=== PATIENT | male | born 1975 | race Two or more races ===

== ENCOUNTER 2016-10-27 16:03 | Emergency (ER) | payer OTHER ==
[~2016-10-27 16:03] MED LIST: CEPH-264 PO; HYDR-971 PO
[2016-10-27] MEDS ORDERED: IV NORMAL SALINE 1000ML BAG 1,000 ML IV SCH (16:36)
--- NOTE | 2016-10-27 16:44 | EKG ---
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
[2016-10-27] MEDS ORDERED: FAMOTIDINE 20 MG/2 ML VIAL IVP ONE (16:45)
[2016-10-27] MEDS ORDERED: KETOROLAC TROMETHAMINE 30 MG/ML INJ. IV ONE (16:45)
[2016-10-27 16:46] LABS: BASO # 0.1 x10^3/uL (0.0-0.2); BASO % 1 % (0-3); EOS % 5 % (0-3); HEMATOCRIT 50.5 % (39.0-53.0); HEMOGLOBIN 17.4 g/dL (13.0-17.5); LYMPH # 2.1 x10^3/uL (1.0-4.8); LYMPH % 27 % (24-48); MEAN CORPUSCULAR HEMOGLOBIN 31 pg (25-35); MEAN CORPUSCULAR HGB CONC 34 g/dL (31-37); MEAN CORPUSCULAR VOLUME 90 fL (79-100); MONO % 7 % (0-9); NEUT % 62 % (31-73); PLATELET COUNT 228 x10^3/uL (140-400); RED BLOOD COUNT 5.62 x10^6/uL (4.30-5.70); RED CELL DISTRIBUTION WIDTH 12.6 % (11.5-14.5)
[2016-10-27 16:48] LABS: BILIRUBIN,URINE NEGATIVE (NEG); GLUCOSE,URINE NEGATIVE (NEG); NITRITE,URINE NEGATIVE (NEG); PROTEIN,URINE NEGATIVE (NEG-TRACE); UROBILINOGEN,URINE 0.2 mg/dL (0.2 mg/dL)
--- NOTE | 2016-10-27 16:54 | PHYS DOC ---
Past Medical History Past Medical History: Diabetes-Type II, Kidney Stone Past Surgical History: Other Additional Past Surgical Histo: lithotripsy Alcohol Use: Occasionally Drug Use: None Adult General Chief Complaint Chief Complaint: MULTIPLE COMPLAINTS HPI HPI Patient is a 41 year old male who drove himself to the emergency department who presents with multiple complaints. The patient does not speak Maltese, the classroom paraprofessional phone was used for communication. Complaints include headache, dizziness, burning in the belly, pain up into his chest, generalized muscle and joint pains. It seems that the complaint that actually brought him to the ED today is the headache. Patient states he has had a headache off and on for 3 months, worse for 2 days. He's been dizzy for 1 month, worse for 2 days. He also has dysuria and it feels like when he had a kidney stone in 2013. He has a burning in his belly that goes up into the center of his chest. He has nausea but no vomiting, shortness of air but no cough. He denies fever or chills but his temp was 99.9. He has not taken any pain medication or other over-the- counter medication today. PCP Dr. Barrios Patient has a history of diabetes but states he told his doctor he cannot afford medications so she talked to him about diet and exercise and he has been controlling it that way. Also has a history of kidney stone. No cardiac history , no GI history. Review of Systems Review of Systems Constitutional: Denies fever or chills [] Eyes: Denies change in visual acuity, redness, or eye pain [] HENT: Denies nasal congestion or sore throat [] Respiratory: As in history of present illness Cardiovascular: As in history of present illness GI: Denies abdominal pain, vomiting, bloody stools or diarrhea , admits to nausea : As in history of present illness Musculoskeletal: Generalized muscle and joint pains Integument: Denies rash or skin lesions [] Neurologic: As in history of present illness Current Medications Current Medications Current Medications Medications (Trade) Dose Ordered Sig/Carlos Start Time Stop Time Status Last Admin Dose Admin Famotidine (Pepcid) 20 mg 1X ONCE 10/27/16 16:45 10/27/16 16:46 DC 10/27/16 16:45 20 MG Ketorolac Tromethamine (Toradol) 30 mg 1X ONCE 10/27/16 16:45 10/27/16 16:46 DC 10/27/16 16:45 30 MG Sodium Chloride (Iv Sodium Chloride 0.9% 1000ml Bag) 1,000 ml @ 1,000 mls/hr Q1H 10/27/16 16:36 10/27/16 17:35 DC 10/27/16 16:45 1,000 MLS/HR Allergies Allergies Allergies Coded Allergies Type Severity Reaction Last Updated Verified vancomycin Allergy Severe Swelling 11/28/15 Yes Physical Exam Physical Exam Constitutional: Well developed, well nourished, no acute distress, non-toxic appearance. Temp 99.9, alert, mentating normally, other vital signs normal. HENT: Normocephalic, atraumatic, bilateral external ears normal, oropharynx moist, no oral exudates, nose normal. [] Eyes: conjunctiva normal, no discharge. [] Neck: Normal range of motion, no stridor. [] Cardiovascular:Heart rate regular rhythm, no murmur [] Lungs & Thorax: Bilateral breath sounds clear to auscultation [] Abdomen: Bowel sounds normal, soft, nondistended, no tenderness, no masses, no pulsatile masses. [] Skin: Warm, dry, no erythema, no rash. [] Extremities: No tenderness, no cyanosis, no clubbing, ROM intact, no edema. [] Neurologic: Alert and oriented X 3, normal motor function, normal sensory function, no focal deficits noted. [] Current Patient Data Vital Signs Vital Signs Date Time Temp Pulse Resp B/P Pulse Ox O2 Delivery O2 Flow Rate FiO2 10/27/16 19:30 64 18 126/87 99 Room Air 10/27/16 16:05 99.9 99.9 Lab Values Laboratory Tests Test 10/27/16 16:10 10/27/16 16:20 White Blood Count 8.0x10^3/uL (4.0-11.0) Red Blood Count 5.62x10^6/uL (4.30-5.70) Hemoglobin 17.4g/dL (13.0-17.5) Hematocrit 50.5% (39.0-53.0) Mean Corpuscular Volume 90fL (79-100) Mean Corpuscular Hemoglobin 31pg (25-35) Mean Corpuscular Hemoglobin Concent 34g/dL (31-37) Red Cell Distribution Width 12.6% (11.5-14.5) Platelet Count 228x10^3/uL (140-400) Neutrophils (%) (Auto) 62% (31-73) Lymphocytes (%) (Auto) 27% (24-48) Monocytes (%) (Auto) 7% (0-9) Eosinophils (%) (Auto) 5% (0-3) H Basophils (%) (Auto) 1% (0-3) Neutrophils # (Auto) 4.9x10^3uL (1.8-7.7) Lymphocytes # (Auto) 2.1x10^3/uL (1.0-4.8) Monocytes # (Auto) 0.5x10^3/uL (0.0-1.1) Eosinophils # (Auto) 0.4x10^3/uL (0.0-0.7) Basophils # (Auto) 0.1x10^3/uL (0.0-0.2) Sodium Level 139mmol/L (136-145) Potassium Level 3.4mmol/L (3.5-5.1) L Chloride Level 101mmol/L (98-107) Carbon Dioxide Level 33mmol/L (21-32) H Anion Gap 5 (6-14) L Blood Urea Nitrogen 10mg/dL (8-26) Creatinine 1.0mg/dL (0.7-1.3) Estimated GFR (Cockcroft-Gault) 82.3 Glucose Level 173mg/dL (70-99) H Calcium Level 10.0mg/dL (8.5-10.1) Magnesium Level 2.0mg/dL (1.8-2.4) Total Bilirubin 0.4mg/dL (0.2-1.0) Direct Bilirubin 0.1mg/dL (0.0-0.2) Aspartate Amino Transferase (AST) 20U/L (15-37) Alanine Aminotransferase (ALT) 42U/L (16-63) Alkaline Phosphatase 81U/L (46-116) Creatine Kinase 88U/L (39-308) Creatine Kinase MB (Mass) 1.4ng/mL (0.0-3.6) Creatine Kinase MB Relative Index 1.6% (0-4) Troponin I Quantitative < 0.017ng/mL (0.000-0.055) FA-Lol-O-Type Natriuretic Peptide 32pg/mL (0-124) Total Protein 8.0g/dL (6.4-8.2) Albumin 4.6g/dL (3.4-5.0) Lipase 255U/L (73-393) Urine Collection Type Unknown Urine Color Yellow Urine Clarity Clear Urine pH 7.0 Urine Specific [place] 1.010 Urine Protein Negativemg/dL (NEG-TRACE) Urine Glucose (UA) Negativemg/dL (NEG) Urine Ketones (Stick) Negativemg/dL (NEG) Urine Blood Moderate (NEG) Urine Nitrite Negative (NEG) Urine Bilirubin Negative (NEG) Urine Urobilinogen Dipstick 0.2mg/dL (0.2 mg/dL) Urine Leukocyte Esterase Trace (NEG) Urine RBC 20-40/HPF (0-2) Urine WBC Occ/HPF (0-4) Urine Bacteria 0/HPF (0-FEW) Laboratory Tests 10/27/16 16:10 Laboratory Tests 10/27/16 16:10 EKG EKG 12-lead EKG read by me. Compared to previous EKG dated 11/28/2015. Sinus rhythm. Heart rate 72. Incomplete right bundle branch block. The previous EKG also had an incomplete right bundle branch block. There is slight ST elevation in V2 and V3, it does not appear to be an injury pattern. Previous EKG has a slightly different morphology but also has slight ST elevation in V2. I believe this is a repolarization abnormality due to incomplete right bundle branch block. No STEMI. 1620 [] Radiology/Procedures Radiology/Procedures One view portable chest x-ray read by me. No acute cardiopulmonary abnormality. [] Course & Med Decision Making Course & Med Decision Making Pertinent Labs and Imaging studies reviewed. (See chart for details) 41-year-old male with a history of diet controlled diabetes and kidney stone presents with multiple complaints, including a headache, dizziness, burning pain in the belly and chest, dysuria, joint and muscle generalized aches and pains. He was found to have a temp of 99.0, he may have a viral syndrome contributing to several of these complaints. I discussed with the patient that we will get some tests including blood urine and chest x-ray, we will give him some IV fluids and IV Toradol to see if that helps his symptoms as well as some IV Pepcid. He is agreeable to that plan. Urinalysis does show blood, I ordered CT scan of the abdomen and pelvis. CT scan of the abdomen and pelvis read by the radiologist does show nonobstructing intrarenal kidney stones. Labs unremarkable for acute findings, blood sugar was elevated but he does have a history of type 2 diabetes, urinalysis does show blood which is explained by nonobstructing kidney stones, CT scan unremarkable for other acute or significant findings. The patient rested comfortably, had IV fluids and IV Toradol as well as IV Pepcid, recheck of the patient he said he feels better, his headache is improved and body aches are improved. I discussed with the patient using the filler shredding machine loader phone results of tests and follow-up recommendations. I advised that he could try some kysm-uzb-byzbrgf ranitidine for his burning stomach pain and advised him to see Dr. Barrios about his elevated blood sugar and chronic kidney stones. [] Dragon Disclaimer Dragon Disclaimer This electronic medical record was generated, in whole or in part, using a voice recognition dictation system. Departure Departure Impression: Primary Impression: Headache Additional Impression: Viral syndrome Disposition: HOME, SELF-CARE Condition: STABLE Referrals: ROSA LEON MD (PCP) Patient Instructions: General Headache Without Cause, [id number] Additional Instructions: As we discussed, test results were negative or normal in the emergency department except that your blood sugar is elevated. I recommend that you follow up with Dr. Barrios about your blood sugar, diabetes. CT scan showed that you do have kidney stones in your kidney, but none of them appear to be passing or causing problems at this time. Continue to drink plenty of fluids to help with kidney stones. For your burning stomach pain I recommend that you purchase [id number] ranitidine and take one daily. This helps decrease stomach acid production. For headache and aches and pains, you may take udun-vws-wknheyh ibuprofen, 200 mg, one or 2 every 4-6 hours as needed. Problem Qualifiers JACKY MONK MD Oct 27, 2016 16:54
[2016-10-27 16:59] LABS: BACTERIA,URINE 0 /HPF (0-FEW); RBC,URINE 20-40 /HPF (0-2); WBC,URINE OCC /HPF (0-4)
[2016-10-27 17:04] LABS: GFR 82.3; POTASSIUM 3.4 mmol/L (3.5-5.1)
[2016-10-27 17:09] LABS: ALBUMIN 4.6 g/dL (3.4-5.0); DIRECT BILIRUBIN 0.1 mg/dL (0.0-0.2); TOTAL BILIRUBIN 0.4 mg/dL (0.2-1.0)
[2016-10-27 17:18] LABS: CKMB MASS 1.4 ng/mL (0.0-3.6)
--- NOTE | 2016-10-27 18:29 | RAD ---
PROCEDURE CT abdomen and pelvis without intravenous contrast. HISTORY Renal stones, pain, hematuria. TECHNIQUE Helical CT of the abdomen and pelvis was performed without intravenous or oral contrast. Exposure: One or more of the following individualized dose reduction techniques were utilized for this examination: 1. Automated exposure control. 2. Adjustment of the mA and/or kV according to patient size. 3. Use of iterative reconstruction technique. COMPARISON None. FINDINGS Evaluation of solid organs is limited by lack of intravenous contrast. Evaluation of enteric structures may be limited by lack of oral contrast. Liver, spleen, pancreas, gallbladder, and bilateral adrenal glands are unremarkable. No bowel obstruction or inflammation is seen. Appendix is without evidence of inflammation. No free air or free fluid is seen in the abdomen or pelvis. Urinary bladder is unremarkable. Right ureter is without evidence of stone or obstruction. There is mild dilatation of left ureter, although no radiodense stone is seen. Interpolar region of the right kidney demonstrates 3 millimeter nonobstructive nephrolith. The left kidney demonstrates numerous nonobstructive nephroliths ranging in size from punctate to 4 millimeters. There is moderate wedge compression at T12, age indeterminate, probably old. IMPRESSION 1. Bilateral nonobstructive nephrolithiasis, left much worse than right. 2. Mild dilatation of left ureter, although cause is not identified as no radiodense stone is seen. 3. Moderate wedge compression at T12, age indeterminate, may be old. Electronically signed by: Jorge Jose MD (Oct 27, 2016 18:28:24)
[2016-10-27 19:30] VITALS: BP 126/87
--- NOTE | 2016-10-28 08:24 | RAD ---
Indication chest pain. A single view of the chest was obtained. Comparison is made to an exam 04/24/2016. The heart, pulmonary vessels and mediastinum appear within normal limits. The lungs are clear of acute infiltrates. A substantial change when compared to the previous exam is not seen. IMPRESSION: No acute or focal process seen in the chest
== END 2016-10-27 19:30 | disposition home or self-care (01) ==
LOC: ER 16:03
DX: R51 Headache (principal); B34.9 Viral infection, unspecified; R42 Dizziness and giddiness; R07.89 Other chest pain; R20.8 Other disturbances of skin sensation; R19.8 Other specified symptoms and signs involving the digestive system and abdomen; M79.1 Myalgia; M25.50 Pain in unspecified joint; E11.9 Type 2 diabetes mellitus without complications; Z87.442 Personal history of urinary calculi; Z88.1 Allergy status to other antibiotic agents
CPT/HCPCS: 36415; 71010; 74176; 80048; 80076; 81001; 82553; 83690; 83735; 83880; 84484; 85027; 93005; 96361; 96374; 96375; 99285; J1885; J7030; S0028

== ENCOUNTER 2017-02-09 05:21 | Emergency (ER) | payer OTHER ==
[~2017-02-09] VITALS: Ht 165.1 cm; Wt 60.8 kg
[2017-02-09] MEDS ORDERED: MELO15TA23 PO (05:44)
[2017-02-09] MEDS ORDERED: CYCL10TA2 PO (05:46)
[2017-02-09] MEDS ORDERED: KETOROLAC TROMETHAMINE 30 MG/ML INJ. IV ONE (06:30)
[2017-02-09] MEDS ORDERED: ONDANSETRON PF 4 MG/2 ML VIAL. IV ONE (06:30)
[2017-02-09 06:34] LABS: BASO # 0.1 x10^3/uL (0.0-0.2); BASO % 1 % (0-3); EOS % 5 % (0-3); HEMATOCRIT 49.4 % (39.0-53.0); LYMPH # 2.5 x10^3/uL (1.0-4.8); LYMPH % 32 % (24-48); MEAN CORPUSCULAR HEMOGLOBIN 31 pg (25-35); MEAN CORPUSCULAR HGB CONC 34 g/dL (31-37); MEAN CORPUSCULAR VOLUME 89 fL (79-100); MONO % 7 % (0-9); NEUT % 56 % (31-73); PLATELET COUNT 224 x10^3/uL (140-400); RED BLOOD COUNT 5.57 x10^6/uL (4.30-5.70); RED CELL DISTRIBUTION WIDTH 12.5 % (11.5-14.5); WHITE BLOOD COUNT 7.8 x10^3/uL (4.0-11.0)
[2017-02-09 06:36] LABS: BILIRUBIN,URINE NEGATIVE (NEG); GLUCOSE,URINE 100 mg/dL (NEG); NITRITE,URINE NEGATIVE (NEG); PH,URINE 6.5; PROTEIN,URINE NEGATIVE (NEG-TRACE); UROBILINOGEN,URINE 0.2 mg/dL (0.2 mg/dL)
--- NOTE | 2017-02-09 06:41 | PHYS DOC ---
Past Medical History Past Medical History: Diabetes-Type II, Kidney Stone Past Surgical History: Other Additional Past Surgical Histo: lithotripsy x 4 Alcohol Use: Occasionally Drug Use: None Adult General Chief Complaint Chief Complaint: back pain, abdominal pain HPI HPI Patient is a 41 year old male who drove himself to the emergency department with a complaint of 2 days of pain in his abdomen and back on the left side. Also pain with urination. He feels like he needs to urinate and have a bowel movement but feels like he is not able to do so. He has had a kidney stone 4 times in the past and he believes this feels somewhat like that. He's had a procedure four times at due to kidney stones. Patient has felt feverish and has felt cold, no measured fever. He has had nausea but no vomiting. He denies shortness of air or cough. Patient had a back injury on the job and brings paperwork with him, he was seen on 02/05 in the work comp clinic and prescribed meloxicam and cyclobenzaprine. Therefore, his back was hurting before this started, but this recent complaint of abdominal and back pain started 2 days ago. States he has had a history of hypertension and diabetes but for the past 2 years he has been managing these without meds, with exercise and diet. Pt is Ukrainian and pediatrician active practice phone was used. Review of Systems Review of Systems Constitutional: As in history of present illness Eyes: Denies change in visual acuity, redness, or eye pain [] HENT: Denies nasal congestion or sore throat [] Respiratory: Denies cough or shortness of breath [] Cardiovascular: Denies chest pain GI: As in history of present illness : As in history of present illness Musculoskeletal: Denies back pain or joint pain [] Integument: Denies rash or skin lesions [] Neurologic: Denies headache, focal weakness or sensory changes [] Current Medications Current Medications Current Medications Medications (Trade) Dose Ordered Sig/Carlos Start Time Stop Time Status Last Admin Dose Admin Ketorolac Tromethamine (Toradol) 30 mg 1X ONCE 02/09/17 06:30 02/09/17 06:31 DC 02/09/17 06:35 30 MG Ondansetron HCl (Zofran) 4 mg 1X ONCE 02/09/17 06:30 02/09/17 06:31 DC 02/09/17 06:35 4 MG Tamsulosin HCl (Flomax) 0.4 mg 1X ONCE 02/09/17 08:45 02/09/17 08:46 Allergies Allergies Allergies Coded Allergies Type Severity Reaction Last Updated Verified vancomycin Allergy Severe Swelling 11/28/15 Yes Physical Exam Physical Exam Constitutional: Well developed, well nourished, appears uncomfortable, he left 3 times during our interview to go to the bathroom HENT: Normocephalic, atraumatic, bilateral external ears normal, nose normal. [ ] Eyes: conjunctiva normal, no discharge. [] Neck: Normal range of motion, no stridor. [] Cardiovascular:Heart rate regular rhythm, no murmur [] Lungs & Thorax: Bilateral breath sounds clear to auscultation [] Abdomen: Bowel sounds normal, soft, no tenderness, no masses, no pulsatile masses. [] Skin: Warm, dry, no erythema, no rash. [] Back: No tenderness, no CVA tenderness. [] Extremities: No tenderness, no cyanosis, no clubbing, ROM intact, no edema. [] Neurologic: Alert and oriented X 3, normal motor function, normal sensory function, no focal deficits noted. [] Current Patient Data Vital Signs Vital Signs Date Time Temp Pulse Resp B/P (MAP) Pulse Ox O2 Delivery O2 Flow Rate FiO2 02/09/17 06:45 97.5 59 20 100 97.5 02/09/17 05:35 Room Air Lab Values Laboratory Tests Test 02/09/17 05:30 02/09/17 06:30 Urine Collection Type Unknown Urine Color Yellow Urine Clarity Clear Urine pH 6.5 Urine Specific [place] 1.010 Urine Protein Negative mg/dL (NEG-TRACE) Urine Glucose (UA) 100 mg/dL (NEG) Urine Ketones (Stick) Negative mg/dL (NEG) Urine Blood Moderate (NEG) Urine Nitrite Negative (NEG) Urine Bilirubin Negative (NEG) Urine Urobilinogen Dipstick 0.2 mg/dL (0.2 mg/dL) Urine Leukocyte Esterase Negative (NEG) Urine RBC 11-20 /HPF (0-2) Urine WBC 1-4 /HPF (0-4) Urine Bacteria Few /HPF (0-FEW) Urine Mucus Mod /LPF White Blood Count 7.8 x10^3/uL (4.0-11.0) Red Blood Count 5.57 x10^6/uL (4.30-5.70) Hemoglobin 17.0 g/dL (13.0-17.5) Hematocrit 49.4 % (39.0-53.0) Mean Corpuscular Volume 89 fL (79-100) Mean Corpuscular Hemoglobin 31 pg (25-35) Mean Corpuscular Hemoglobin Concent 34 g/dL (31-37) Red Cell Distribution Width 12.5 % (11.5-14.5) Platelet Count 224 x10^3/uL (140-400) Neutrophils (%) (Auto) 56 % (31-73) Lymphocytes (%) (Auto) 32 % (24-48) Monocytes (%) (Auto) 7 % (0-9) Eosinophils (%) (Auto) 5 % (0-3) H Basophils (%) (Auto) 1 % (0-3) Neutrophils # (Auto) 4.3 x10^3uL (1.8-7.7) Lymphocytes # (Auto) 2.5 x10^3/uL (1.0-4.8) Monocytes # (Auto) 0.5 x10^3/uL (0.0-1.1) Eosinophils # (Auto) 0.4 x10^3/uL (0.0-0.7) Basophils # (Auto) 0.1 x10^3/uL (0.0-0.2) Sodium Level 142 mmol/L (136-145) Potassium Level 3.4 mmol/L (3.5-5.1) L Chloride Level 105 mmol/L (98-107) Carbon Dioxide Level 32 mmol/L (21-32) Anion Gap 5 (6-14) L Blood Urea Nitrogen 5 mg/dL (8-26) L Creatinine 0.9 mg/dL (0.7-1.3) Estimated GFR (Cockcroft-Gault) 93.0 BUN/Creatinine Ratio 6 (6-20) Glucose Level 98 mg/dL (70-99) Calcium Level 8.8 mg/dL (8.5-10.1) Total Bilirubin 0.3 mg/dL (0.2-1.0) Aspartate Amino Transferase (AST) 37 U/L (15-37) Alanine Aminotransferase (ALT) 81 U/L (16-63) H Alkaline Phosphatase 104 U/L (46-116) Total Protein 7.7 g/dL (6.4-8.2) Albumin 4.3 g/dL (3.4-5.0) Albumin/Globulin Ratio 1.3 (1.0-1.7) Lipase 318 U/L (73-393) Laboratory Tests 02/09/17 06:30 Laboratory Tests 02/09/17 06:30 EKG EKG [] Radiology/Procedures Radiology/Procedures CT scan of the abdomen and pelvis read by the radiologist, revealing a 5 mm stone in the distal right ureter near the right UVJ. Mild obstruction of the right collecting system. [] Course & Med Decision Making Course & Med Decision Making Pertinent Labs and Imaging studies reviewed. (See chart for details) 41-year-old male with a history of kidney stones presents with back and abdominal pain and urinary symptoms for 2 days. I discussed with the patient that we will give him some pain and nausea medications, check some tests and a CT scan, he is agreeable to that plan. Urinalysis positive only for blood. CT scan does show a 5 mm stone in the distal right ureter. Patient was treated with Toradol and Flomax. See instructions for plan. [] Dragon Disclaimer Dragon Disclaimer This electronic medical record was generated, in whole or in part, using a voice recognition dictation system. Departure Departure Impression: Primary Impression: Right distal ureteral calculus Additional Impression: Ureteral colic Disposition: 01 HOME, SELF-CARE Condition: STABLE Referrals: ROSA LEON MD (PCP) Patient Instructions: Kidney Stones, [id number] Additional Instructions: You do have a kidney stone that is in your ureter but is close to your bladder. It may go ahead and pass or you may have to have a procedure like you did before to get it to pass. The size is 5 mm. Take ibuprofen 800 mg every 8 hours. Stop taking the meloxicam that was prescribed for your back pain, because those 2 medications are almost the same and that will be too much anti-inflammatory. Take Flomax one every 24 hours to help relax the muscle of the urinary system. You had your first dose here in the emergency department, your next dose will be due Friday morning. If you pass the stone, you can stop taking it. If needed, for more severe pain, I have prescribed hydrocodone. This is an opiate and will cause sedation and constipation. Do not take while driving. You may combine ibuprofen, Flomax, and hydrocodone if you need to. If you have a Fever, return to emergency We do not have a urologist here at [facility]. I recommend that you call the urologist that you saw before at or any other urologist to get an appointment to be seen. Call tomorrow morning. Strain urine untill the stone passes.. Scripts Ibuprofen (IBUPROFEN) 800 Mg Tablet 800 MG PO PRN Q6HRS Y for kidney stone pain, #14 TAB Prov: JACKY MONK MD 02/09/17 Hydrocodone/Apap 5-325 (NORCO 5-325 TABLET) 1 Each Tablet 1-2 TAB PO Q4-6HRS for kidney stone pain, #10 TAB Prov: JACKY MONK MD 02/09/17 Tamsulosin Hcl (FLOMAX) 0.4 Mg Cap.er.24h 1 CAP PO DAILY for kidney stone pain, #14 CAP 11 Refills Take once every 24 hours until your kidney stone passes Prov: JACKY MONK MD 02/09/17 Problem Qualifiers JACKY MONK MD Feb 09, 2017 06:40
[2017-02-09 06:42] LABS: BACTERIA,URINE FEW /HPF (0-FEW)
[2017-02-09 06:43] LABS: CALCIUM 8.8 mg/dL (8.5-10.1); CREATININE 0.9 mg/dL (0.7-1.3); POTASSIUM 3.4 mmol/L (3.5-5.1)
[2017-02-09 06:50] LABS: ALBUMIN 4.3 g/dL (3.4-5.0); ALBUMIN/GLOBULIN RATIO 1.3 (1.0-1.7); TOTAL BILIRUBIN 0.3 mg/dL (0.2-1.0); TOTAL PROTEIN 7.7 g/dL (6.4-8.2)
--- NOTE | 2017-02-09 08:27 | RAD ---
CT scan of the abdomen and pelvis without contrast 02/09/2017 Clinical history: Right flank pain. Technique: Unenhanced, contiguous, 2 mm axial sections were obtained through the abdomen and pelvis. One or more of the following individualized dose reduction techniques were utilized for this study: 1. Automated exposure control. 2. Adjustment of the mA and/or kV according to patient size. 3. Use of iterative reconstruction technique. Findings: Comparison study is dated 10/27/2016. Images through the lung bases demonstrate minimal dependent subsegmental atelectasis bilaterally. The liver, spleen, pancreas, and adrenal glands are within normal limits. Multiple nonobstructing calculi are seen involving predominantly the left kidney. These measure 1 mm to 7 mm in size. Mild dilatation of the right intrarenal collecting system is seen. The right ureter is mildly dilated. Within the distal right ureter a 5 mm distal right ureteral calculus is seen. This is 1 cm superior to the expected location of the right UVJ. It is causing mild obstruction of the right collecting system. The abdominal aorta tapers normally. The gallbladder is contracted. No free fluid or free air is seen within the abdomen. There is no evidence of bowel obstruction. The appendix is well-visualized and is within normal limits. Images through the pelvis demonstrate the urinary bladder is contracted. A punctate calcification is seen within the left pelvis consistent with a phlebolith. No free fluid is seen. The osseous structures are unchanged. Impression: 5 mm distal right ureteral calculus is seen near the right UVJ. It is causing mild obstruction of the right collecting system.
[2017-02-09 08:39] VITALS: BP 111/76
[2017-02-09] MEDS ORDERED: TAMSULOSIN 0.4 MG CAP.ER.24H. PO ONE (08:45)
[2017-02-09] MEDS ORDERED: HYDR-971 PO (08:54)
[2017-02-09] MEDS ORDERED: IBUP-1060 PO (08:54)
[2017-02-09] MEDS ORDERED: TAMS0.4C97 PO (08:54)
== END 2017-02-09 09:11 | disposition home or self-care (01) ==
LOC: ER 05:21
DX: N20.1 Calculus of ureter (principal); E11.9 Type 2 diabetes mellitus without complications; I10 Essential (primary) hypertension; Z88.1 Allergy status to other antibiotic agents; Z87.442 Personal history of urinary calculi
CPT/HCPCS: 36415; 74176; 80053; 81001; 83690; 85025; 96374; 96375; 99285; J1885; J2405